=== PATIENT | male | born 1945 | race Caucasian/White ===

== ENCOUNTER 2021-02-26 18:59 | Emergency (ER) | payer MEDICARE, BC ==
[2021-02-26] MEDS ORDERED: Ventolin HFA Inhaler 60 PUFF INHALER ONE (20:25)
[2021-02-26 20:37] LABS: #Eosinphils 0.5 10x3/uL (0.0-0.5); #Monocytes 0.9 10x3/uL (0.0-1.1); #Neutrophils 8.3 10x3/uL (1.5-8.4); %Basophils 0.3 % (0.0-2.0); %Eosinophils 4.1 % (0.0-6.0); Hemoglobin 12.7 g/dL (13.5-17.5); Mean Corpuscular HGB CONC 32.6 g/dL (32.0-36.0); Mean Corpuscular Hemoglobin 29.8 pg (27.0-33.0); Mean Corpuscular Volume 91.5 fl (81.2-95.1); Mean Platelet Volume 9.6 fl (7.4-10.4); Platelet Count 257 10x3/uL (150-450); RBC Distribution Width 13.2 % (11.5-14.5); Red Blood Cell (RBC) Count 4.26 10x6/uL (4.32-5.72); White Blood Cell (WBC) Count 12.4 10x3/uL (3.5-10.5)
[2021-02-26 20:53] LABS: ALT (SGPT) 24 U/L (8-55); AST (SGOT) 29 U/L (5-34); Albumin 3.5 g/dL (3.4-4.8); Alkaline Phosphatase 108 U/L (40-110); Anion Gap 15 mmol/L (10-20); BUN (Urea Nitrogen) 25 mg/dL (8.4-25.7); Bilirubin, Total 1.2 mg/dL (0.2-1.2); Calc. Creatinine Clearance 0 mL/min (70-130); Calcium 8.1 mg/dL (7.8-10.44); Carbon Dioxide 24 mmol/L (23-31); Chloride 107 mmol/L (98-107); Globulin 2.5 g/dL (2.4-3.5); Glucose 90 mg/dL (83-110); Potassium 3.6 mmol/L (3.5-5.1); Sodium 142 mmol/L (136-145)
== END 2021-02-27 00:08 | disposition home or self-care (01) ==
LOC: CSHERS 18:59
DX: U07.1 COVID-19 (principal); J43.9 Emphysema, unspecified; R79.1 Abnormal coagulation profile; I45.89 Other specified conduction disorders; I50.9 Heart failure, unspecified; I25.10 Atherosclerotic heart disease of native coronary artery without angina pectoris; F17.200 Nicotine dependence, unspecified, uncomplicated
CPT/HCPCS: 71045; 71275; 80053; 83880; 84484; 85025; 85379; 93005; 93010; 94664; 94760

== ENCOUNTER 2021-05-02 21:17 | Emergency (ER) | payer MEDICARE, BC ==
[2021-05-02] MEDS ORDERED: Morphine 4 MG/ML VIAL ONE (21:35)
[2021-05-02] MEDS ORDERED: Ketorolac Tromethamine 30 MG/ML VIAL ONE (21:36)
== END 2021-05-03 00:30 | disposition home or self-care (01) ==
LOC: CSHERS 21:17
DX: S39.012A Strain of muscle, fascia and tendon of lower back, initial encounter (principal); I25.10 Atherosclerotic heart disease of native coronary artery without angina pectoris; I50.9 Heart failure, unspecified; F17.210 Nicotine dependence, cigarettes, uncomplicated; X50.9XXA Other and unspecified overexertion or strenuous movements or postures, initial encounter
CPT/HCPCS: 72100; 96374; 96375; J1885; J2270

== ENCOUNTER 2021-09-13 10:36 | Inpatient (IN) | payer MEDICARE, BC ==
[2021-09-13] MEDS ORDERED: cefTRIAXone\\ROCEPHIN 2 GM VIAL ONE (11:42)
[2021-09-13 11:47] LABS: #Neutrophils 7.7 10x3/uL (1.5-8.4); %Basophils 0.4 % (0.0-2.0); %Eosinophils 0.4 % (0.0-6.0); %Lymphocytes 6.8 % (18.0-47.0); %Monocytes 0.4 % (0.0-10.0); %Neutrophils 91.8 % (40.0-75.0); Hemoglobin 11.2 g/dL (13.5-17.5); Mean Corpuscular HGB CONC 33.2 g/dL (32.0-36.0); Mean Corpuscular Hemoglobin 31.1 pg (27.0-33.0); Mean Corpuscular Volume 93.6 fl (81.2-95.1); Mean Platelet Volume 10.1 fl (7.4-10.4); Platelet Count 203 10x3/uL (150-450); RBC Distribution Width 14.2 % (11.5-14.5); White Blood Cell (WBC) Count 8.4 10x3/uL (3.5-10.5)
[2021-09-13 11:51] LABS: Bilirubin Neg (Negative); Blood, Urine Negative (Negative); Clarity Clear (Clear); Glucose, Urine (Dipstick) Normal (Negative); Ketone, Urine Negative (Negative); Leukocyte Negative (Negative); Nitrite Negative (Negative); Protein, Urine (Dipstick) Negative (Neg-Trace); Urobilinogen Normal mg/dL (Less than 2)
[2021-09-13 12:01] LABS: ALT (SGPT) 29 U/L (8-55); AST (SGOT) 56 U/L (5-34); Albumin 3.2 g/dL (3.4-4.8); Alkaline Phosphatase 159 U/L (40-110); Anion Gap 15 mmol/L (10-20); BUN (Urea Nitrogen) 14 mg/dL (8.4-25.7); Bilirubin, Total 0.8 mg/dL (0.2-1.2); CK (CPK) 24 U/L (30-200); Calc. Creatinine Clearance 0 mL/min (70-130); Calcium 8.2 mg/dL (7.8-10.44); Carbon Dioxide 25 mmol/L (23-31); Chloride 104 mmol/L (98-107); Estimated GFR 83; Globulin 1.9 g/dL (2.4-3.5); Glucose 72 mg/dL (83-110); Magnesium 1.7 mg/dL (1.6-2.6); Potassium 3.3 mmol/L (3.5-5.1); Protein, Total 5.1 g/dL (5.8-8.1); Sodium 141 mmol/L (136-145)
[2021-09-13] MEDS ORDERED: Potassium Chloride 20 MEQ TAB ONE (12:28)
[2021-09-13 13:14] LABS: SARS-CoV-2 NAA Rapid Test DETECTED (NotDetected)
[2021-09-13 14:31] LABS: Lactic Acid 3.3 mmol/L (0.5-2.2)
[2021-09-13] MEDS ORDERED: Acetaminophen 325 MG TAB PO PRN (14:36)
[2021-09-13] MEDS ORDERED: Iopamidol 300 61% 100 ML VIAL FS ONE (14:37)
[2021-09-13] MEDS ORDERED: Magnesium 2 GM/50 ML BAG (IN WATER) ONE ×2 (14:38→19:46)
[2021-09-13] MEDS ORDERED: Sodium Chloride 0.9% 1,000 ML IV SCH (15:00)
[2021-09-13] MEDS ORDERED: Norepinephrine 8 MG/0.9% NS 250 ML ONE (17:09)
[2021-09-13] MEDS ORDERED: Norepinephrine 8 MG/0.9% NS 250 ML IVPB SCH (19:30)
[2021-09-13] MEDS: Nicotine 14 MG PATCH TD SCH ×2 (19:46→19:59)
[2021-09-13] MEDS ORDERED: Magnesium 2 GM/50 ML(in water) 2 GM in Premix Bag 1 BAG IVPB SCH (20:00)
[2021-09-13] MEDS: Cefepime 1 GM in Sodium Chloride 0.9% 100 ML IVPB SCH (20:10)
[2021-09-13] MEDS: Atorvastatin Calcium 40 MG TAB PO SCH (20:10)
[2021-09-13] MEDS ORDERED: VANCOMYCIN 2 GRAM/400 ML BAG IVPB SCH (21:00)
[2021-09-13] MEDS ORDERED: HYDROcodone/Acetaminophen 5/325 mg Tablet PO SCH (21:30)
[2021-09-14 04:43] LABS: Hemoglobin 10.2 g/dL (13.5-17.5); Mean Corpuscular HGB CONC 33.1 g/dL (32.0-36.0); Mean Corpuscular Hemoglobin 31.8 pg (27.0-33.0); Mean Platelet Volume 10.3 fl (7.4-10.4); Platelet Count 217 10x3/uL (150-450); RBC Distribution Width 14.3 % (11.5-14.5); Red Blood Cell (RBC) Count 3.21 10x6/uL (4.32-5.72); White Blood Cell (WBC) Count 32.5 10x3/uL (3.5-10.5)
[2021-09-14 04:56] LABS: Anion Gap 13 mmol/L (10-20); BUN (Urea Nitrogen) 15 mg/dL (8.4-25.7); Calc. Creatinine Clearance 90 mL/min (70-130); Calcium 7.8 mg/dL (7.8-10.44); Carbon Dioxide 23 mmol/L (23-31); Chloride 109 mmol/L (98-107); Estimated GFR 93; Glucose 72 mg/dL (83-110); Potassium 3.7 mmol/L (3.5-5.1); Sodium 141 mmol/L (136-145)
[2021-09-14 05:03] LABS: MDiff Complete? YES; Manual Diff?? YES
[2021-09-14 05:55] LABS: Band 30 % (5-11); Lymphocytes 6 % (21-51); Monocytes 5 % (0-10); Neutrophil 58 % (42-75); Reactive Lymphocytes 1 % (0-10)
[2021-09-14 05:57] LABS: Platelet Morphology Comment Appears Adequate
[2021-09-14 07:57] LABS: ALT (SGPT) 25 U/L (8-55); AST (SGOT) 33 U/L (5-34); Albumin 2.7 g/dL (3.4-4.8); Alkaline Phosphatase 136 U/L (40-110); Bilirubin, Direct 0.4 mg/dL (0.1-0.3); Bilirubin, Total 0.7 mg/dL (0.2-1.2); Protein, Total 4.8 g/dL (5.8-8.1)
[2021-09-14] MEDS: Cefepime 1 GM in Sodium Chloride 0.9% 100 ML IVPB SCH ×2 (08:12→20:04)
[2021-09-14] MEDS: Aspirin Chewable 81 MG TAB PO SCH (08:12)
[2021-09-14] MEDS: Dextrose 5%-Lactated Ringers 1,000 ML IV SCH ×2 (08:16→20:04)
[2021-09-14] MEDS: HYDROcodone/Acetaminophen 7.5/325 mg Tablet PO PRN ×2 (08:16→20:04)
[2021-09-14] MEDS: VANCOMYCIN 1.25 GM/250 ML BAG 1.25 GM in Premix Bag 1 BAG IVPB SCH ×2 (09:27→20:04)
[2021-09-14] MEDS ORDERED: VANCOMYCIN 1.25 GM/250 ML BAG 1.25 GM in Premix Bag 1 BAG IVPB SCH (12:00)
[2021-09-14 12:34] LABS: Hemoglobin A1c 4.8 % (4.0-6.0)
[2021-09-14] MEDS: Atorvastatin Calcium 40 MG TAB PO SCH (20:04)
[2021-09-14] MEDS: Nicotine 14 MG PATCH TD SCH (20:05)
[2021-09-15 03:54] LABS: #Basophils 0.1 10x3/uL (0.0-0.2); #Eosinphils 0.6 10x3/uL (0.0-0.5); #Monocytes 0.9 10x3/uL (0.0-1.1); %Basophils 0.6 % (0.0-2.0); %Eosinophils 3.3 % (0.0-6.0); %Lymphocytes 17.3 % (18.0-47.0); %Monocytes 4.8 % (0.0-10.0); %Neutrophils 73.5 % (40.0-75.0); Hemoglobin 9.3 g/dL (13.5-17.5); Mean Corpuscular HGB CONC 32.2 g/dL (32.0-36.0); Mean Corpuscular Hemoglobin 30.6 pg (27.0-33.0); Mean Corpuscular Volume 95.1 fl (81.2-95.1); Mean Platelet Volume 9.9 fl (7.4-10.4); Platelet Count 192 10x3/uL (150-450); RBC Distribution Width 14.1 % (11.5-14.5); Red Blood Cell (RBC) Count 3.04 10x6/uL (4.32-5.72); White Blood Cell (WBC) Count 17.7 10x3/uL (3.5-10.5)
[2021-09-15] MEDS: HYDROcodone/Acetaminophen 7.5/325 mg Tablet PO PRN ×3 (04:04→20:17)
[2021-09-15 04:27] LABS: ALT (SGPT) 17 U/L (8-55); AST (SGOT) 23 U/L (5-34); Albumin 2.5 g/dL (3.4-4.8); Alkaline Phosphatase 125 U/L (40-110); Anion Gap 13 mmol/L (10-20); BUN (Urea Nitrogen) 14 mg/dL (8.4-25.7); Bilirubin, Total 0.4 mg/dL (0.2-1.2); CK (CPK) 32 U/L (30-200); Calc. Creatinine Clearance 93 mL/min (70-130); Calcium 7.5 mg/dL (7.8-10.44); Carbon Dioxide 22 mmol/L (23-31); Cardiac Risk 3.1 (Less than 4.5); Chloride 109 mmol/L (98-107); Cholesterol 77 mg/dl (< 200 Desired); Estimated GFR 94; Globulin 1.6 g/dL (2.4-3.5); Glucose 74 mg/dL (83-110); HDL Cholesterol 25 mg/dL (>60 Neg Risk); Iron 18 ug/dL (65-175); Iron Binding Capacity, Total 125 mcg/dL (261-462); Iron Binding Capacity, Total 129 mcg/dL (261-462); LDL Cholesterol, Calculated 35 mg/dL; Magnesium 2.3 mg/dL (1.6-2.6); Potassium 3.6 mmol/L (3.5-5.1); Protein, Total 4.1 g/dL (5.8-8.1); Sodium 140 mmol/L (136-145); Triglycerides 84 mg/dL (Less than 150)
[2021-09-15 04:47] LABS: Ferritin 336.46 ng/mL (22-322)
[2021-09-15 07:00] LABS: Vancomycin, Trough 26.9 ug/mL
[2021-09-15] MEDS: Cefepime 1 GM in Sodium Chloride 0.9% 100 ML IVPB SCH ×2 (09:39→20:16)
[2021-09-15] MEDS: Aspirin Chewable 81 MG TAB PO SCH (09:40)
[2021-09-15] MEDS: Carvedilol 3.125 MG TAB PO SCH (18:13)
[2021-09-15 19:31] LABS: Vancomycin, Random 19.6 ug/mL (See Comment)
[2021-09-15] MEDS: Nicotine 14 MG PATCH TD SCH ×2 (20:17→23:32)
[2021-09-15] MEDS: Atorvastatin Calcium 40 MG TAB PO SCH (20:17)
[2021-09-15] MEDS: Vancomycin HCl 1 GM in Sodium Chloride 0.9% 250 ML 250 ML IVPB SCH (23:50)
[2021-09-16] MEDS: HYDROcodone/Acetaminophen 7.5/325 mg Tablet PO PRN ×3 (03:56→20:17)
[2021-09-16 04:45] LABS: #Basophils 0.1 10x3/uL (0.0-0.2); #Eosinphils 0.5 10x3/uL (0.0-0.5); #Monocytes 0.5 10x3/uL (0.0-1.1); #Neutrophils 6.5 10x3/uL (1.5-8.4); %Basophils 0.8 % (0.0-2.0); %Eosinophils 4.6 % (0.0-6.0); %Monocytes 4.5 % (0.0-10.0); %Neutrophils 55.7 % (40.0-75.0); Hemoglobin 9.8 g/dL (13.5-17.5); Mean Corpuscular Hemoglobin 30.5 pg (27.0-33.0); Mean Corpuscular Volume 95.3 fl (81.2-95.1); Mean Platelet Volume 10.4 fl (7.4-10.4); Platelet Count 211 10x3/uL (150-450); RBC Distribution Width 13.9 % (11.5-14.5); Red Blood Cell (RBC) Count 3.21 10x6/uL (4.32-5.72); White Blood Cell (WBC) Count 11.7 10x3/uL (3.5-10.5)
[2021-09-16 04:59] LABS: ALT (SGPT) 20 U/L (8-55); AST (SGOT) 22 U/L (5-34); Albumin 2.6 g/dL (3.4-4.8); Alkaline Phosphatase 140 U/L (40-110); Anion Gap 13 mmol/L (10-20); BUN (Urea Nitrogen) 9 mg/dL (8.4-25.7); Bilirubin, Total 0.4 mg/dL (0.2-1.2); Calc. Creatinine Clearance 98 mL/min (70-130); Calcium 7.9 mg/dL (7.8-10.44); Carbon Dioxide 22 mmol/L (23-31); Chloride 111 mmol/L (98-107); Estimated GFR 94; Globulin 2.1 g/dL (2.4-3.5); Glucose 68 mg/dL (83-110); Magnesium 2.2 mg/dL (1.6-2.6); Potassium 3.8 mmol/L (3.5-5.1); Protein, Total 4.7 g/dL (5.8-8.1); Sodium 142 mmol/L (136-145)
[2021-09-16] MEDS: Cefepime 1 GM in Sodium Chloride 0.9% 100 ML IVPB SCH ×2 (10:01→20:17)
[2021-09-16] MEDS: Carvedilol 3.125 MG TAB PO SCH ×2 (10:02→16:38)
[2021-09-16] MEDS: Aspirin Chewable 81 MG TAB PO SCH (10:02)
[2021-09-16] MEDS ORDERED: Polyethylene Glycol 3350 17 GM Packet PO SCH (16:00)
[2021-09-16] MEDS ORDERED: Lisinopril 2.5 MG TAB PO SCH (18:00)
[2021-09-16] MEDS ORDERED: Cefepime 1 GM VIAL ONE (20:15)
[2021-09-16] MEDS: Atorvastatin Calcium 40 MG TAB PO SCH (20:17)
[2021-09-16] MEDS: Nicotine 14 MG PATCH TD SCH (20:48)
[2021-09-16] MEDS: Vancomycin HCl 1 GM in Sodium Chloride 0.9% 250 ML 250 ML IVPB SCH (23:55)
[2021-09-17] MEDS: HYDROcodone/Acetaminophen 7.5/325 mg Tablet PO PRN ×3 (04:05→21:51)
[2021-09-17] MEDS: Cefepime 1 GM in Sodium Chloride 0.9% 100 ML IVPB SCH ×2 (09:44→21:42)
[2021-09-17] MEDS: Aspirin Chewable 81 MG TAB PO SCH (09:44)
[2021-09-17] MEDS: Enoxaparin Sodium 40 MG/0.4 ML SYRINGE SC SCH (09:44)
[2021-09-17] MEDS: Lisinopril 2.5 MG TAB PO SCH (09:44)
[2021-09-17] MEDS: Carvedilol 3.125 MG TAB PO SCH (09:44)
[2021-09-17] MEDS: Polyethylene Glycol 3350 17 GM Packet PO SCH (09:45)
[2021-09-17 13:28] VITALS: BMI 23.7
[2021-09-17] MEDS: Furosemide 40 MG TAB PO SCH (13:56)
[2021-09-17 14:12] LABS: Hemoglobin 11.2 g/dL (13.5-17.5); Mean Corpuscular HGB CONC 33.3 g/dL (32.0-36.0); Mean Corpuscular Hemoglobin 31.3 pg (27.0-33.0); Mean Corpuscular Volume 93.9 fl (81.2-95.1); Mean Platelet Volume 9.6 fl (7.4-10.4); Platelet Count 238 10x3/uL (150-450); RBC Distribution Width 13.8 % (11.5-14.5); Red Blood Cell (RBC) Count 3.58 10x6/uL (4.32-5.72); White Blood Cell (WBC) Count 11.4 10x3/uL (3.5-10.5)
[2021-09-17 14:13] LABS: MDiff Complete? YES
[2021-09-17 14:23] LABS: ALT (SGPT) 20 U/L (8-55); AST (SGOT) 26 U/L (5-34); Albumin 3.1 g/dL (3.4-4.8); Alkaline Phosphatase 148 U/L (40-110); Anion Gap 13 mmol/L (10-20); BUN (Urea Nitrogen) 7 mg/dL (8.4-25.7); Bilirubin, Total 0.4 mg/dL (0.2-1.2); Calc. Creatinine Clearance 88 mL/min (70-130); Calcium 8.6 mg/dL (7.8-10.44); Carbon Dioxide 23 mmol/L (23-31); Chloride 110 mmol/L (98-107); Estimated GFR 91; Globulin 2.5 g/dL (2.4-3.5); Glucose 103 mg/dL (83-110); Magnesium 2.1 mg/dL (1.6-2.6); Potassium 4.4 mmol/L (3.5-5.1); Protein, Total 5.6 g/dL (5.8-8.1); Sodium 142 mmol/L (136-145)
[2021-09-17 14:47] LABS: Eosinophils 3 % (0-10); Lymphocytes 28 % (21-51); Monocytes 7 % (0-10); Neutrophil 61 % (42-75); Platelet Morphology Comment Appears Adequate; Reactive Lymphocytes 1 % (0-10)
[2021-09-17] MEDS: Carvedilol 6.25 MG TAB PO SCH (17:34)
[2021-09-17] MEDS: Potassium Chloride 10 MEQ TAB PO SCH (17:34)
[2021-09-17] MEDS: Atorvastatin Calcium 40 MG TAB PO SCH (21:41)
[2021-09-17] MEDS ORDERED: Cefepime 1 GM VIAL ONE (21:43)
[2021-09-17] MEDS: Nicotine 14 MG PATCH TD SCH (22:08)
[2021-09-17 22:34] LABS: Vancomycin, Trough 17.4 ug/mL
[2021-09-17] MEDS: Vancomycin HCl 1 GM in Sodium Chloride 0.9% 250 ML 250 ML IVPB SCH (23:50)
[2021-09-18 05:38] LABS: #Basophils 0.1 10x3/uL (0.0-0.2); #Eosinphils 0.5 10x3/uL (0.0-0.5); #Monocytes 0.6 10x3/uL (0.0-1.1); #Neutrophils 4.5 10x3/uL (1.5-8.4); %Eosinophils 4.5 % (0.0-6.0); %Lymphocytes 45.2 % (18.0-47.0); %Neutrophils 42.9 % (40.0-75.0); Hemoglobin 9.7 g/dL (13.5-17.5); Mean Corpuscular HGB CONC 32.8 g/dL (32.0-36.0); Mean Corpuscular Hemoglobin 30.7 pg (27.0-33.0); Mean Corpuscular Volume 93.7 fl (81.2-95.1); Mean Platelet Volume 10.2 fl (7.4-10.4); Platelet Count 238 10x3/uL (150-450); RBC Distribution Width 13.8 % (11.5-14.5); Red Blood Cell (RBC) Count 3.16 10x6/uL (4.32-5.72); White Blood Cell (WBC) Count 10.6 10x3/uL (3.5-10.5)
[2021-09-18] MEDS: HYDROcodone/Acetaminophen 7.5/325 mg Tablet PO PRN ×2 (05:47→16:00)
[2021-09-18 06:06] LABS: ALT (SGPT) 18 U/L (8-55); AST (SGOT) 26 U/L (5-34); Albumin 2.7 g/dL (3.4-4.8); Alkaline Phosphatase 122 U/L (40-110); Anion Gap 10 mmol/L (10-20); BUN (Urea Nitrogen) 6 mg/dL (8.4-25.7); Bilirubin, Total 0.5 mg/dL (0.2-1.2); Calc. Creatinine Clearance 96 mL/min (70-130); Calcium 8.3 mg/dL (7.8-10.44); Carbon Dioxide 26 mmol/L (23-31); Chloride 111 mmol/L (98-107); Estimated GFR 94; Globulin 2.1 g/dL (2.4-3.5); Glucose 70 mg/dL (83-110); Potassium 3.6 mmol/L (3.5-5.1); Protein, Total 4.8 g/dL (5.8-8.1); Sodium 143 mmol/L (136-145)
[2021-09-18] MEDS: Lisinopril 2.5 MG TAB PO SCH (08:40)
[2021-09-18] MEDS: Aspirin Chewable 81 MG TAB PO SCH (08:41)
[2021-09-18] MEDS: Enoxaparin Sodium 40 MG/0.4 ML SYRINGE SC SCH (08:41)
[2021-09-18] MEDS: Furosemide 40 MG TAB PO SCH ×2 (08:41→14:24)
[2021-09-18] MEDS: Carvedilol 6.25 MG TAB PO SCH ×2 (08:41→16:01)
[2021-09-18] MEDS: Potassium Chloride 10 MEQ TAB PO SCH ×2 (08:41→16:01)
[2021-09-18] MEDS: Polyethylene Glycol 3350 17 GM Packet PO SCH (08:41)
[2021-09-18] MEDS: Cefepime 1 GM in Sodium Chloride 0.9% 100 ML IVPB SCH ×2 (09:47→21:25)
[2021-09-18] MEDS: Atorvastatin Calcium 40 MG TAB PO SCH (21:26)
[2021-09-18] MEDS: Nicotine 14 MG PATCH TD SCH (21:26)
[2021-09-18] MEDS: Vancomycin HCl 1 GM in Sodium Chloride 0.9% 250 ML 250 ML IVPB SCH (23:12)
[2021-09-19] MEDS: HYDROcodone/Acetaminophen 7.5/325 mg Tablet PO PRN ×4 (00:38→23:35)
[2021-09-19 05:46] LABS: ALT (SGPT) 15 U/L (8-55); AST (SGOT) 18 U/L (5-34); Albumin 2.9 g/dL (3.4-4.8); Alkaline Phosphatase 116 U/L (40-110); Anion Gap 12 mmol/L (10-20); BUN (Urea Nitrogen) 6 mg/dL (8.4-25.7); Bilirubin, Total 0.5 mg/dL (0.2-1.2); Calc. Creatinine Clearance 85 mL/min (70-130); Calcium 8.3 mg/dL (7.8-10.44); Carbon Dioxide 28 mmol/L (23-31); Chloride 107 mmol/L (98-107); Estimated GFR 90; Globulin 2.3 g/dL (2.4-3.5); Glucose 66 mg/dL (83-110); Magnesium 1.9 mg/dL (1.6-2.6); Potassium 3.4 mmol/L (3.5-5.1); Protein, Total 5.2 g/dL (5.8-8.1); Sodium 144 mmol/L (136-145)
[2021-09-19 05:54] LABS: Hemoglobin 10.2 g/dL (13.5-17.5); Mean Corpuscular HGB CONC 32.9 g/dL (32.0-36.0); Mean Corpuscular Hemoglobin 30.8 pg (27.0-33.0); Mean Corpuscular Volume 93.7 fl (81.2-95.1); Mean Platelet Volume 10.1 fl (7.4-10.4); Platelet Count 272 10x3/uL (150-450); RBC Distribution Width 13.9 % (11.5-14.5); Red Blood Cell (RBC) Count 3.31 10x6/uL (4.32-5.72); White Blood Cell (WBC) Count 11.1 10x3/uL (3.5-10.5)
[2021-09-19 06:49] LABS: MDiff Complete? YES
[2021-09-19 06:51] LABS: Platelet Morphology Comment Appears Adequate
[2021-09-19 06:53] LABS: Band 3 % (5-11); Eosinophils 5 % (0-10); Lymphocytes 60 % (21-51); Monocytes 4 % (0-10); Neutrophil 28 % (42-75)
[2021-09-19] MEDS: Cefepime 1 GM in Sodium Chloride 0.9% 100 ML IVPB SCH ×2 (08:46→21:24)
[2021-09-19] MEDS: Enoxaparin Sodium 40 MG/0.4 ML SYRINGE SC SCH (08:46)
[2021-09-19] MEDS: Aspirin Chewable 81 MG TAB PO SCH (08:47)
[2021-09-19] MEDS: Lisinopril 2.5 MG TAB PO SCH (08:47)
[2021-09-19] MEDS: Polyethylene Glycol 3350 17 GM Packet PO SCH (08:47)
[2021-09-19] MEDS: Potassium Chloride 10 MEQ TAB PO SCH ×2 (08:49→17:23)
[2021-09-19] MEDS: Carvedilol 6.25 MG TAB PO SCH ×2 (08:49→17:23)
[2021-09-19] MEDS: Furosemide 40 MG TAB PO SCH ×2 (08:49→14:51)
[2021-09-19] MEDS: Atorvastatin Calcium 40 MG TAB PO SCH (21:24)
[2021-09-19] MEDS: Nicotine 14 MG PATCH TD SCH (21:40)
[2021-09-19 22:42] LABS: Vancomycin, Trough 19.8 ug/mL
[2021-09-19] MEDS: Vancomycin HCl 1 GM in Sodium Chloride 0.9% 250 ML 250 ML IVPB SCH (23:01)
[2021-09-20 05:13] LABS: Hemoglobin 10.7 g/dL (13.5-17.5); Mean Corpuscular HGB CONC 32.4 g/dL (32.0-36.0); Mean Corpuscular Hemoglobin 30.5 pg (27.0-33.0); Mean Platelet Volume 9.8 fl (7.4-10.4); Platelet Count 270 10x3/uL (150-450); RBC Distribution Width 14.2 % (11.5-14.5); Red Blood Cell (RBC) Count 3.51 10x6/uL (4.32-5.72); White Blood Cell (WBC) Count 11.3 10x3/uL (3.5-10.5)
[2021-09-20 05:31] LABS: ALT (SGPT) 15 U/L (8-55); AST (SGOT) 25 U/L (5-34); Alkaline Phosphatase 116 U/L (40-110); Anion Gap 12 mmol/L (10-20); BUN (Urea Nitrogen) 10 mg/dL (8.4-25.7); Bilirubin, Total 0.4 mg/dL (0.2-1.2); Calc. Creatinine Clearance 80 mL/min (70-130); Calcium 8.7 mg/dL (7.8-10.44); Carbon Dioxide 29 mmol/L (23-31); Chloride 104 mmol/L (98-107); Estimated GFR 88; Globulin 2.6 g/dL (2.4-3.5); Glucose 76 mg/dL (83-110); Magnesium 1.8 mg/dL (1.6-2.6); Potassium 4.1 mmol/L (3.5-5.1); Protein, Total 5.6 g/dL (5.8-8.1); Sodium 141 mmol/L (136-145)
[2021-09-20 05:34] LABS: MDiff Complete? YES
[2021-09-20 05:37] LABS: Band 3 % (5-11); Eosinophils 5 % (0-10); Lymphocytes 46 % (21-51); Monocytes 5 % (0-10); Neutrophil 37 % (42-75); Reactive Lymphocytes 4 % (0-10)
[2021-09-20 05:38] LABS: Platelet Morphology Comment Appears Adequate; RBC Morphology Normal
[2021-09-20] MEDS: Furosemide 40 MG TAB PO SCH (09:32)
[2021-09-20] MEDS: Aspirin Chewable 81 MG TAB PO SCH (09:32)
[2021-09-20] MEDS: Lisinopril 2.5 MG TAB PO SCH (09:33)
[2021-09-20] MEDS: Carvedilol 6.25 MG TAB PO SCH (09:33)
[2021-09-20] MEDS: HYDROcodone/Acetaminophen 7.5/325 mg Tablet PO PRN (09:33)
[2021-09-20] MEDS: Cefepime 1 GM in Sodium Chloride 0.9% 100 ML IVPB SCH (09:34)
[2021-09-20] MEDS: Polyethylene Glycol 3350 17 GM Packet PO SCH (09:34)
[2021-09-20] MEDS: Potassium Chloride 10 MEQ TAB PO SCH (09:34)
[2021-09-20] MEDS: Enoxaparin Sodium 40 MG/0.4 ML SYRINGE SC SCH (09:35)
[2021-09-20 12:43] VITALS: BP 124/68; TEMP 97.7
== END 2021-09-20 14:26 | disposition home or self-care (01) | DRG 853 ==
LOC: CSHERS 10:36 → CSHICU 18:06 → CSHTELE 09-15 16:30
PROVIDERS: ADMIT Family Medicine; ATTEND Internal Medicine
PROC: 05HY33Z Insertion of Infusion Device into Upper Vein, Percutaneous Approach (ICD-10-PCS; 2021-09-13)
PROC: 8E0ZXY6 Isolation (ICD-10-PCS; 2021-09-13)
PROC: 3E043XZ Introduction of Vasopressor into Central Vein, Percutaneous Approach (ICD-10-PCS; 2021-09-13)
PROC: 3E03329 Introduction of Other Anti-infective into Peripheral Vein, Percutaneous Approach (ICD-10-PCS; 2021-09-13)
PROC: 0JBQ0ZZ Excision of Right Foot Subcutaneous Tissue and Fascia, Open Approach (ICD-10-PCS; principal; 2021-09-17)
DX: A41.89 Other specified sepsis (principal); U07.1 COVID-19; I50.42 Chronic combined systolic (congestive) and diastolic (congestive) heart failure; I25.10 Atherosclerotic heart disease of native coronary artery without angina pectoris; I11.0 Hypertensive heart disease with heart failure; E78.5 Hyperlipidemia, unspecified; Z96.643 Presence of artificial hip joint, bilateral; F17.210 Nicotine dependence, cigarettes, uncomplicated; Z20.822 Contact with and (suspected) exposure to COVID-19; E83.42 Hypomagnesemia; E87.6 Hypokalemia; D64.9 Anemia, unspecified; I25.5 Ischemic cardiomyopathy; I73.9 Peripheral vascular disease, unspecified; L97.519 Non-pressure chronic ulcer of other part of right foot with unspecified severity; I71.4 Abdominal aortic aneurysm, without rupture; I25.2 Old myocardial infarction; Z95.5 Presence of coronary angioplasty implant and graft; Z95.1 Presence of aortocoronary bypass graft; Z95.810 Presence of automatic (implantable) cardiac defibrillator
CPT/HCPCS: 36415; 36556; 71045; 74177; 80048; 80053; 80061; 80076; 80202; 81003; 82550; 82607; 82728; 82746; 83036; 83540; 83550; 83605; 83735; 84145; 84443; 84484; 85025; 85046; 86850; 86900; 86901; 87040; 87070; 87076; 87086; 87149; 87205; 93005; 93306; 94760; 96361; 96365; 96366; 96367; 96375; 97139; J0692; J0696; J1650; J3370; J3475; J3490; J7050; Q9967

== ENCOUNTER 2021-10-07 14:27 | Emergency (ER) | payer OTHER, MEDICARE, BC | END 2021-10-07 16:46 | disposition home or self-care (01) | LOC: CSHERS 14:27 | DX: S01.01XA Laceration without foreign body of scalp, initial encounter (principal); I25.2 Old myocardial infarction; I11.0 Hypertensive heart disease with heart failure; I50.9 Heart failure, unspecified; E78.5 Hyperlipidemia, unspecified; I25.10 Atherosclerotic heart disease of native coronary artery without angina pectoris; F17.210 Nicotine dependence, cigarettes, uncomplicated; W01.0XXA Fall on same level from slipping, tripping and stumbling without subsequent striking against object, initial encounter | CPT/HCPCS: 70450; 72125 ==

== ENCOUNTER 2021-10-21 09:23 | Inpatient (IN) | payer MEDICARE, BC ==
[2021-10-21 09:55] LABS: Hemoglobin 12.6 g/dL (13.5-17.5); Mean Corpuscular HGB CONC 31.8 g/dL (32.0-36.0); Mean Corpuscular Hemoglobin 29.9 pg (27.0-33.0); Mean Corpuscular Volume 94.1 fl (81.2-95.1); Mean Platelet Volume 10.4 fl (7.4-10.4); Platelet Count 251 10x3/uL (150-450); RBC Distribution Width 13.8 % (11.5-14.5); Red Blood Cell (RBC) Count 4.21 10x6/uL (4.32-5.72); White Blood Cell (WBC) Count 11.4 10x3/uL (3.5-10.5)
[2021-10-21 09:58] LABS: MDiff Complete? YES; Manual Diff?? YES
[2021-10-21 10:07] LABS: ALT (SGPT) 10 U/L (8-55); AST (SGOT) 20 U/L (5-34); Alkaline Phosphatase 110 U/L (40-110); Anion Gap 11 mmol/L (10-20); BUN (Urea Nitrogen) 12 mg/dL (8.4-25.7); Bilirubin, Total 0.5 mg/dL (0.2-1.2); Calc. Creatinine Clearance 0 mL/min (70-130); Calcium 9.3 mg/dL (7.8-10.44); Carbon Dioxide 29 mmol/L (23-31); Chloride 104 mmol/L (98-107); Estimated GFR 84; Globulin 2.8 g/dL (2.4-3.5); Glucose 103 mg/dL (83-110); Potassium 3.4 mmol/L (3.5-5.1); Protein, Total 6.8 g/dL (5.8-8.1); Sodium 141 mmol/L (136-145)
[2021-10-21] MEDS ORDERED: Cefepime 2 GM VIAL ONE ×2 (10:14)
[2021-10-21 10:19] LABS: Eosinophils 3 % (0-10); Lymphocytes 37 % (21-51); Monocytes 5 % (0-10); Neutrophil 47 % (42-75); Reactive Lymphocytes 8 % (0-10)
[2021-10-21 10:20] LABS: Platelet Morphology Comment Appears Adequate
[2021-10-21] MEDS ORDERED: Vancomycin 1.5 GRAM/300 ML BAG 1.5 GM in Premix Bag 1 BAG IVPB SCH (11:00)
[2021-10-21] MEDS ORDERED: Nicotine 14 MG PATCH TD PRN (11:41)
[2021-10-21] MEDS ORDERED: Senokot S 8.6-50 MG TAB PO PRN (11:45)
[2021-10-21] MEDS ORDERED: Acetaminophen 325 MG TAB PO PRN (11:45)
[2021-10-21] MEDS ORDERED: Ondansetron PF 4 MG/2 ML Vial IVP PRN (11:45)
[2021-10-21] MEDS ORDERED: Ondansetron ODT 4 MG TAB PO PRN (11:45)
[2021-10-21] MEDS ORDERED: Sodium Chloride 0.9% 1,000 ML IV SCH (11:45)
[2021-10-21] MEDS ORDERED: diphenhydrAMINE 50 MG/ML VIAL ONE (11:47)
[2021-10-21] MEDS ORDERED: Iopamidol 370 76% 100 ML VIAL ONE (15:04)
[2021-10-21 17:00] VITALS: BMI 21.6
[2021-10-21] MEDS ORDERED: Potassium Chloride 20 MEQ TAB PO SCH (17:00)
[2021-10-21] MEDS: HYDROcodone/Acetaminophen 7.5/325 mg Tablet PO PRN (17:06)
[2021-10-21 17:28] LABS: Magnesium 1.9 mg/dL (1.6-2.6)
[2021-10-21] MEDS ORDERED: Carvedilol 6.25 MG TAB PO SCH (21:00)
[2021-10-21 21:33] LABS: SARS-CoV-2 NAA Rapid Test Not Detected (NotDetected)
[2021-10-21] MEDS: Famotidine 20 MG TAB PO SCH (21:39)
[2021-10-21] MEDS: Atorvastatin Calcium 40 MG TAB PO SCH (21:40)
[2021-10-21] MEDS: Cefepime 1 GM in Sodium Chloride 0.9% 100 ML IVPB SCH (21:40)
[2021-10-21] MEDS: Potassium Chloride 10 MEQ TAB PO SCH (21:40)
[2021-10-21] MEDS: Carvedilol 6.25 MG TAB PO SCH (21:40)
[2021-10-22 02:22] LABS: Bilirubin Neg (Negative); Blood, Urine Negative (Negative); Clarity Clear (Clear); Glucose, Urine (Dipstick) Normal (Negative); Ketone, Urine Negative (Negative); Leukocyte Negative (Negative); Nitrite Negative (Negative); Protein, Urine (Dipstick) 15 mg/dl (Neg-Trace); Urobilinogen Normal mg/dL (Less than 2); pH, Urine 6.5 (5.0-9.0)
[2021-10-22 02:36] LABS: Bacteria/HPF None Seen HPF (None Seen); RBC/HPF 0-3 HPF (0-3); Squamous Epithelial None Seen HPF (0-3); WBC/HPF 0-3 HPF (0-3)
[2021-10-22 04:59] LABS: #Basophils 0.1 10x3/uL (0.0-0.2); #Eosinphils 0.5 10x3/uL (0.0-0.5); #Monocytes 0.6 10x3/uL (0.0-1.1); #Neutrophils 4.6 10x3/uL (1.5-8.4); %Basophils 1.1 % (0.0-2.0); %Eosinophils 4.8 % (0.0-6.0); %Lymphocytes 39.4 % (18.0-47.0); %Monocytes 6.3 % (0.0-10.0); %Neutrophils 48.3 % (40.0-75.0); Hemoglobin 10.8 g/dL (13.5-17.5); Mean Corpuscular Hemoglobin 29.9 pg (27.0-33.0); Mean Corpuscular Volume 93.6 fl (81.2-95.1); Mean Platelet Volume 10.7 fl (7.4-10.4); Platelet Count 192 10x3/uL (150-450); RBC Distribution Width 13.7 % (11.5-14.5); Red Blood Cell (RBC) Count 3.61 10x6/uL (4.32-5.72); White Blood Cell (WBC) Count 9.6 10x3/uL (3.5-10.5)
[2021-10-22 05:02] LABS: Anion Gap 12 mmol/L (10-20); BUN (Urea Nitrogen) 12 mg/dL (8.4-25.7); Calc. Creatinine Clearance 75 mL/min (70-130); Calcium 8.6 mg/dL (7.8-10.44); Carbon Dioxide 25 mmol/L (23-31); Chloride 109 mmol/L (98-107); Estimated GFR 87; Glucose 76 mg/dL (83-110); Potassium 3.8 mmol/L (3.5-5.1); Sodium 142 mmol/L (136-145)
[2021-10-22] MEDS: HYDROcodone/Acetaminophen 7.5/325 mg Tablet PO PRN ×2 (05:49→22:05)
[2021-10-22] MEDS ORDERED: Lisinopril 2.5 MG TAB PO SCH (09:00)
[2021-10-22] MEDS ORDERED: IRON PO SCH (09:00)
[2021-10-22] MEDS ORDERED: [UNRECOGNIZED DRUG - OTHER] PO SCH (09:00)
[2021-10-22] MEDS ORDERED: Non-Formulary Medication 1 EACH (Mecobalamin [B12 Active] 1,000 MCG Tab.Chew) PO SCH (09:00)
[2021-10-22] MEDS ORDERED: GARLIC 1000 MG PO SCH (09:00)
[2021-10-22] MEDS ORDERED: VIT C PO SCH (09:00)
[2021-10-22] MEDS: Aspirin Chewable 81 MG TAB PO SCH (09:44)
[2021-10-22] MEDS: Furosemide 40 MG TAB PO SCH (09:44)
[2021-10-22] MEDS: Multivit, Therapeutic 1 TAB PO SCH (09:46)
[2021-10-22] MEDS: Carvedilol 6.25 MG TAB PO SCH ×2 (09:46→20:54)
[2021-10-22] MEDS: Famotidine 20 MG TAB PO SCH ×2 (09:46→20:53)
[2021-10-22] MEDS ORDERED: Piperacillin/Tazobactam 3.375 GM in Sodium Chloride 0.9% 100 ML IVPB SCH (10:00)
[2021-10-22] MEDS ORDERED: Neomycin-Polymyxin 1 ML AMP ONE ×2 (10:56→13:41)
[2021-10-22] MEDS ORDERED: Bupivacaine PF 0.5% 30 ML VIAL ONE (10:56)
[2021-10-22] MEDS ORDERED: PROPOFOL 20 ML ONE (12:06)
[2021-10-22] MEDS ORDERED: Fentanyl 100 MCG/2 ML VIAL ONE (12:06)
[2021-10-22] MEDS ORDERED: Lidocaine 1% PF 5 ML VIAL ONE (12:10)
[2021-10-22] MEDS ORDERED: Ondansetron PF 4 MG/2 ML Vial ONE (12:10)
[2021-10-22] MEDS ORDERED: ePHEDrine Sulfate 50 MG/10 ML VIAL ONE (12:57)
[2021-10-22] MEDS ORDERED: PHENYLEPHRINE-NS 100 MCG/ML 10 ML SYRINGE ONE (12:58)
[2021-10-22] MEDS: Cefepime 1 GM in Sodium Chloride 0.9% 100 ML IVPB SCH (13:01)
[2021-10-22] MEDS ORDERED: Dexamethasone 4 mg/ml Vial ONE (13:06)
[2021-10-22] MEDS: Piperacillin/Tazobactam 3.375 GM in Sodium Chloride 0.9% 100 ML IVPB SCH ×2 (14:42→22:05)
[2021-10-22] MEDS: Atorvastatin Calcium 40 MG TAB PO SCH (20:53)
[2021-10-22] MEDS: Potassium Chloride 10 MEQ TAB PO SCH (20:54)
[2021-10-22] MEDS: Linezolid 600 MG in Premix Bag 1 BAG IVPB SCH (20:54)
[2021-10-23 04:33] LABS: #Basophils 0.1 10x3/uL (0.0-0.2); #Monocytes 0.5 10x3/uL (0.0-1.1); %Basophils 0.3 % (0.0-2.0); %Lymphocytes 13.3 % (18.0-47.0); %Monocytes 3.7 % (0.0-10.0); %Neutrophils 81.9 % (40.0-75.0); Hemoglobin 11.8 g/dL (13.5-17.5); Mean Corpuscular HGB CONC 31.8 g/dL (32.0-36.0); Mean Corpuscular Hemoglobin 29.4 pg (27.0-33.0); Mean Corpuscular Volume 92.3 fl (81.2-95.1); Mean Platelet Volume 10.6 fl (7.4-10.4); Platelet Count 220 10x3/uL (150-450); RBC Distribution Width 13.4 % (11.5-14.5); Red Blood Cell (RBC) Count 4.02 10x6/uL (4.32-5.72); White Blood Cell (WBC) Count 14.6 10x3/uL (3.5-10.5)
[2021-10-23 04:47] LABS: Anion Gap 12 mmol/L (10-20); BUN (Urea Nitrogen) 14 mg/dL (8.4-25.7); Calc. Creatinine Clearance 63 mL/min (70-130); Calcium 8.7 mg/dL (7.8-10.44); Carbon Dioxide 26 mmol/L (23-31); Chloride 102 mmol/L (98-107); Estimated GFR 72; Glucose 105 mg/dL (83-110); Sodium 136 mmol/L (136-145)
[2021-10-23] MEDS: Piperacillin/Tazobactam 3.375 GM in Sodium Chloride 0.9% 100 ML IVPB SCH (06:02)
[2021-10-23] MEDS: HYDROcodone/Acetaminophen 7.5/325 mg Tablet PO PRN (06:06)
[2021-10-23 08:59] VITALS: BP 116/51; TEMP 97.1
[2021-10-23] MEDS: Linezolid 600 MG in Premix Bag 1 BAG IVPB SCH ×2 (09:01→09:06)
[2021-10-23] MEDS: Multivit, Therapeutic 1 TAB PO SCH (09:02)
[2021-10-23] MEDS: Aspirin Chewable 81 MG TAB PO SCH (09:02)
[2021-10-23] MEDS: Carvedilol 6.25 MG TAB PO SCH (09:02)
[2021-10-23] MEDS: Furosemide 40 MG TAB PO SCH (09:02)
[2021-10-23] MEDS: Famotidine 20 MG TAB PO SCH (09:02)
== END 2021-10-23 10:55 | disposition home or self-care (01) | DRG 504 ==
LOC: CSHERS 09:23 → CSHTELE 16:08
PROVIDERS: ADMIT Internal Medicine; ATTEND Family Medicine
PROC: 0Y6P0Z3 Detachment at Right 1st Toe, Low, Open Approach (ICD-10-PCS; principal; 2021-10-22)
DX: M86.8X8 Other osteomyelitis, other site (principal); L97.516 Non-pressure chronic ulcer of other part of right foot with bone involvement without evidence of necrosis; I25.10 Atherosclerotic heart disease of native coronary artery without angina pectoris; E78.5 Hyperlipidemia, unspecified; Z96.643 Presence of artificial hip joint, bilateral; F17.210 Nicotine dependence, cigarettes, uncomplicated; D64.9 Anemia, unspecified; E87.6 Hypokalemia; I71.4 Abdominal aortic aneurysm, without rupture; I25.5 Ischemic cardiomyopathy; I11.0 Hypertensive heart disease with heart failure; I50.9 Heart failure, unspecified; I77.1 Stricture of artery; I70.8 Atherosclerosis of other arteries; I70.202 Unspecified atherosclerosis of native arteries of extremities, left leg; Z20.822 Contact with and (suspected) exposure to COVID-19; Z95.810 Presence of automatic (implantable) cardiac defibrillator; Z95.1 Presence of aortocoronary bypass graft; Z88.1 Allergy status to other antibiotic agents; Z88.8 Allergy status to other drugs, medicaments and biological substances; Z79.82 Long term (current) use of aspirin; Z79.899 Other long term (current) drug therapy; Z98.890 Other specified postprocedural states; I25.2 Old myocardial infarction; Z95.5 Presence of coronary angioplasty implant and graft
CPT/HCPCS: 36415; 71045; 75635; 80048; 80053; 81001; 83605; 83735; 85025; 86140; 87040; 87070; 87205; 93005; 94760; 96365; 96375; J0692; J1100; J1200; J2020; J2405; J2543; J2704; J3010; J3370; J3490; Q9967; S0020; U0002